=== PATIENT | female | born 2000 | race Two or more races ===

== ENCOUNTER 2024-01-06 12:09 | Inpatient (IN) | payer BC ==
[~2024-01-06] VITALS: Ht 157.5 cm; Wt 83.9 kg
[2024-01-06 12:05] VITALS: RESP 20
[2024-01-06] MEDS ORDERED: HALOPERIDOL LACTATE 5 MG/ML VIAL ONE (12:12)
[2024-01-06] MEDS ORDERED: DiphenhydrAMINE HCL 50 MG/ML VIAL ONE (12:12)
[2024-01-06] MEDS ORDERED: LORazepam 2 MG/ML VIAL ONE (12:12)
[2024-01-06] MEDS ORDERED: LAMO-24 PO (12:14)
[2024-01-06] MEDS ORDERED: RISP0.5T80 PO ×2 (12:14→13:31)
[2024-01-06] MEDS ORDERED: BUPR-344 PO (12:14)
[2024-01-06] MEDS: HALOPERIDOL LACTATE 5 MG/ML VIAL IM ONE (12:30)
[2024-01-06] MEDS: LORazepam 2 MG/ML VIAL IM ONE (12:30)
[2024-01-06] MEDS: DiphenhydrAMINE HCL 50 MG/ML VIAL IM ONE (12:30)
[2024-01-06] MEDS ORDERED: ACET600C5 PO (13:30)
[2024-01-06] MEDS ORDERED: CHOL200013 PO (13:30)
[2024-01-06] MEDS ORDERED: TRAZ-252 PO (13:30)
[2024-01-06] MEDS ORDERED: NALT50TA33 PO (13:30)
[2024-01-06] MEDS ORDERED: METF-1211 PO (13:32)
[2024-01-06] MEDS ORDERED: BUPR-225 PO (13:40)
[2024-01-06] MEDS ORDERED: PNEUMOCOCCAL VACCINE POLYVALENT 0.5 ML SYRINGE [PPSV23] IM. ONE (13:45)
[2024-01-06 17:38] VITALS: BP 116/74; PULSE 115; RESP 16; TEMP 98
[2024-01-06 18:41] LABS: GLUCOMETER DEV NAME(LOC) BV3S.; GLUCOSE,POINT OF CARE 63 MG/DL (70-110)
[2024-01-06 23:18] VITALS: BP 120/70; PULSE 98; RESP 18; TEMP 97.7
[2024-01-07 08:15] VITALS: BP 116/72; PULSE 78; RESP 16; TEMP 97.2; O2SAT 98
[2024-01-07] MEDS: CHOLECALCIFEROL (VIT D3) 1,000 UNITS [25 MCG] TABLET PO SCH (08:16)
[2024-01-07] MEDS: LORazepam 2 MG TABLET PO PRN (08:17)
[2024-01-07] MEDS: HALOPERIDOL 5 MG TABLET PO PRN (08:17)
[2024-01-07 08:29] LABS: BASOPHILS % (AUTO) 0.7 % (0.0-2.0); EOSINOPHILS % (AUTO) 2.6 % (1.0-6.0); HEMATOCRIT 42.1 % (36-46); HEMOGLOBIN 14.1 g/dL (12.0-16.0); LYMPHOCYTES # (AUTO) 4.1 K/uL (1.0-4.8); LYMPHOCYTES % (AUTO) 32.7 % (22.0-44.0); MEAN CORPUSCULAR HEMOGLOBIN 29.1 pg (26.0-34.0); MEAN CORPUSCULAR HGB CONC 33.4 G/dL (31.0-37.0); MEAN CORPUSCULAR VOLUME 87 fL (80-100); MONOCYTES % (AUTO) 7.8 % (2.0-9.0); NEUTROPHILS # (AUTO) 7.1 K/uL (1.8-7.7); NEUTROPHILS % (AUTO) 56.2 % (40.0-70.0); PLATELET COUNT (AUTO) 355 K/uL (150-450); RED BLOOD CELL COUNT(AUTO) 4.83 MIL/uL (4.00-5.20); RED CELL DISTRIBUTION WIDTH 14.5 % (11.5-14.5); WHITE BLOOD COUNT (AUTO) 12.7 K/uL (4.5-11.0)
[2024-01-07 08:52] LABS: ALANINE AMINOTRANSFERASE 25 U/L (12-78); ALBUMIN 3.6 g/dL (3.4-5.0); ALKALINE PHOSPHATASE 74 U/L (46-116); ANION GAP 11 mmol/L (8-16); ASPARTATE AMINOTRANSFERASE 16 U/L (15-37); BILIRUBIN,TOTAL 0.3 mg/dL (0.1-1.0); CALCIUM, TOTAL 9.3 mg/dL (8.8-10.5); CARBON DIOXIDE 27 mmol/L (22-29); CHLORIDE 106 mmol/L (98-107); CHOL/HDL RATIO 3.3 (3.9-5.7); CHOLESTEROL 131 mg/dL (131-200); CREATININE 0.59 mg/dL (0.60-1.30); FREE T4 (FREE THYROXINE) 1.28 ng/dL (0.76-1.46); GLOMERULAR FILTR. RATE CALC > 60 mL/min (>60); GLUCOSE,RANDOM 83 mg/dL (70-110); HDL CHOLESTEROL 40 mg/dL (40-60); LDL CHOL (CALC.) 76 mg/dL (0-130); POTASSIUM 3.4 mmol/L (3.5-5.1); SODIUM SERUM 144 mmol/L (136-145); THYROID STIMULATING HORMONE 0.94 uIU/mL (0.36-3.74); TOTAL PROTEIN, SERUM 8.1 g/dL (6.4-8.2); TRIGLYCERIDES 76 mg/dL (15-150); UREA NITROGEN, BLOOD 12 mg/dL (7-18)
[2024-01-07] MEDS: LamoTRIgine 100 MG TABLET PO SCH (13:11)
[2024-01-07] MEDS: RisperiDONE 0.5 MG TABLET PO SCH (13:11)
[2024-01-07] MEDS: NALTREXONE HCL 50 MG TABLET PO SCH (13:11)
[2024-01-07] MEDS: BuPROPion HCL 100 MG SR TABLET PO SCH (13:11)
[2024-01-07] MEDS: MetFORMIN HCL 500 MG TABLET PO SCH (17:00)
[2024-01-07 20:14] VITALS: BP 106/58; PULSE 104; RESP 18; TEMP 97.6; O2SAT 100
[2024-01-07] MEDS: TraZODone HCL 50 MG TABLET PO SCH (20:28)
[2024-01-08 08:18] VITALS: BP 112/69; PULSE 97; RESP 16; TEMP 98; O2SAT 98
[2024-01-08 08:46] LABS: BASOPHILS % (AUTO) 0.6 % (0.0-2.0); EOSINOPHILS % (AUTO) 2.9 % (1.0-6.0); HEMATOCRIT 39.5 % (36-46); HEMOGLOBIN 13.4 g/dL (12.0-16.0); LYMPHOCYTES % (AUTO) 34.3 % (22.0-44.0); MEAN CORPUSCULAR HEMOGLOBIN 29.7 pg (26.0-34.0); MEAN CORPUSCULAR VOLUME 88 fL (80-100); MONOCYTES # (AUTO) 0.5 K/uL (0.1-1.0); MONOCYTES % (AUTO) 5.5 % (2.0-9.0); NEUTROPHILS % (AUTO) 56.7 % (40.0-70.0); PLATELET COUNT (AUTO) 342 K/uL (150-450); RED BLOOD CELL COUNT(AUTO) 4.51 MIL/uL (4.00-5.20); RED CELL DISTRIBUTION WIDTH 14.5 % (11.5-14.5); WHITE BLOOD COUNT (AUTO) 8.8 K/uL (4.5-11.0)
[2024-01-08] MEDS: POTASSIUM CHLORIDE 20 MEQ ER TABLET PO ONE (09:16)
[2024-01-08 20:17] VITALS: BP 131/79; PULSE 100; RESP 16; TEMP 98.4; O2SAT 99
[2024-01-08] MEDS: ZOLPIDEM TARTRATE 10 MG TABLET PO PRN (21:10)
[2024-01-09 08:07] VITALS: BP 100/69; PULSE 79; RESP 16; TEMP 98; O2SAT 98
[2024-01-09 08:34] LABS: APPEARANCE,URINE TURBID (CLEAR); BILIRUBIN,URINE NEGATIVE (NEGATIVE); COLOR,URINE YELLOW (YELLOW); GLUCOSE, URINE (UA) NEGATIVE (NEGATIVE); KETONES,URINE NEGATIVE (NEGATIVE); LEUKOCYTE ESTERASE ,URINE TRACE (NEGATIVE); NITRATE,URINE NEGATIVE (NEGATIVE); OCCULT BLOOD,URINE SMALL (NEGATIVE); PROTEIN,URINE NEGATIVE (NEGATIVE); SPECIFIC GRAVITIY, URINE 1.026 (1.003-1.030); UROBILINOGEN,URINE <=1.0 mg/dL (<=1.0)
[2024-01-09 08:45] LABS: AMORPHOUS SEDIMENT,UR Moderate /LPF (None Seen); BACTERIA,URINE None Seen /HPF (None Seen); WBC,URINE 0-2 /HPF (0-5)
[2024-01-09 08:46] LABS: ALCOHOL, URINE DRUG SCREEN NEGATIVE (NEGATIVE); AMPHET/METH SCREEN,URINE NEGATIVE (NEGATIVE); BARBITURATE SCREEN, URINE NEGATIVE (NEGATIVE); BENZODIAZEPINES SCREEN,URINE NEGATIVE (NEGATIVE); CANNABINOID SCREEN,URINE NEGATIVE (NEGATIVE); COCAINE SCREEN,URINE NEGATIVE (NEGATIVE); METHADONE SCREEN, URINE NEGATIVE (NEGATIVE); OPIATE SCREEN,URINE NEGATIVE (NEGATIVE); PHENCYCLIDINE SCREEN,URINE NEGATIVE (NEGATIVE)
[2024-01-09 09:10] LABS: HCG,QUAL URINE NEGATIVE (NEGATIVE)
[2024-01-09 21:40] VITALS: BP 107/59; PULSE 100; RESP 20; TEMP 98.6; O2SAT 97
[2024-01-10 08:32] VITALS: BP 118/74; PULSE 74; RESP 16; TEMP 98; O2SAT 97
[2024-01-10] MEDS ORDERED: HydrOXYzine PAMOATE 25 MG CAPSULE PO PRN (11:15)
[2024-01-10 20:21] VITALS: BP 114/71; PULSE 101; RESP 16; TEMP 97.7; O2SAT 98
[2024-01-10 20:25] VITALS: BP 107/68; PULSE 106; RESP 18; TEMP 98.1; O2SAT 98
[2024-01-10 22:30] LABS: GLUCOMETER DEV NAME(LOC) POC.BV; POC SARS-COV2 AG, FIA NEGATIVE (NEGATIVE)
[2024-01-11 02:35] VITALS: BP 126/87; PULSE 86; RESP 18; TEMP 97.5; O2SAT 96
[2024-01-11] MEDS ORDERED: ALBUTEROL SULFATE HFA 90 MCG/PUFF 8 GM INHALER IH PRN (06:15)
[2024-01-11] MEDS ORDERED: DOCUSATE SODIUM 100 MG CAPSULE PO PRN (06:15)
[2024-01-11] MEDS ORDERED: CloNIDine HCL 0.1 MG TABLET PO PRN (06:15)
[2024-01-11] MEDS ORDERED: ACETAMINOPHEN 325 MG TABLET PO PRN (06:15)
[2024-01-11] MEDS ORDERED: LOPERAMIDE HCL 2 MG CAPSULE PO PRN (06:15)
[2024-01-11] MEDS ORDERED: IBUPROFEN 400 MG TABLET PO PRN (06:15)
[2024-01-11] MEDS ORDERED: ONDANSETRON HCL 4 MG TABLET PO PRN (06:15)
[2024-01-11] MEDS ORDERED: MAGNESIUM HYDROXIDE SUSPENSION 30 ML UDCUP PO PRN (06:15)
[2024-01-11] MEDS ORDERED: MAG HYDROX/ALUMINUM HYD/SIMETH ES 30 ML SUSPENSION UDCUP PO PRN (06:15)
[2024-01-11] MEDS ORDERED: PETROLATUM,WHITE 28 GM JELLY TP PRN (06:15)
[2024-01-11] MEDS ORDERED: NICOTINE 14 MG/24 HOUR PATCH TD PRN (06:15)
[2024-01-11] MEDS ORDERED: GuaiFENesin/D-METHORPHAN [SUGAR-FREE] 200-20MG/10 ML SYRUP UDCUP PO PRN (06:15)
[2024-01-11 07:20] LABS: GLUCOMETER DEV NAME(LOC) 3E.I 2; GLUCOSE,POINT OF CARE 106 MG/DL (70-110)
[2024-01-11 10:21] VITALS: BP 127/78; PULSE 86; RESP 18; TEMP 97.5; O2SAT 98
[2024-01-11 17:11] LABS: GLUCOMETER DEV NAME(LOC) 3E.I 2; GLUCOSE,POINT OF CARE 90 MG/DL (70-110)
[2024-01-11 21:14] VITALS: BP 123/74; PULSE 78; RESP 18; TEMP 97.6; O2SAT 95
[2024-01-11 21:34] VITALS: PULSE 92; RESP 20; O2SAT 98
[2024-01-12 07:06] LABS: GLUCOMETER DEV NAME(LOC) 3E.I 2; GLUCOSE,POINT OF CARE 90 MG/DL (70-110)
[2024-01-12 10:46] VITALS: BP 113/73; PULSE 67; RESP 18; TEMP 97.4; O2SAT 98
[2024-01-12 17:56] LABS: GLUCOMETER DEV NAME(LOC) 3E.I 2; GLUCOSE,POINT OF CARE 124 MG/DL (70-110)
[2024-01-12] MEDS: RisperiDONE 2 MG TABLET PO SCH (21:02)
[2024-01-12 22:30] VITALS: PULSE 90; RESP 20; O2SAT 98
[2024-01-12 22:31] VITALS: BP 117/67; PULSE 82; RESP 18; TEMP 98.2; O2SAT 95
[2024-01-13 01:30] VITALS: PULSE 92; RESP 20; O2SAT 98
[2024-01-13 06:36] LABS: GLUCOMETER DEV NAME(LOC) 3E.I 2; GLUCOSE,POINT OF CARE 93 MG/DL (70-110)
[2024-01-13 09:04] VITALS: BP 111/76; PULSE 73; RESP 18; TEMP 97.7; O2SAT 98
[2024-01-13] MEDS: BuPROPion HCL XL 150 MG ER TABLET PO SCH (09:20)
[2024-01-13 17:20] LABS: GLUCOMETER DEV NAME(LOC) 3E.I 2; GLUCOSE,POINT OF CARE 77 MG/DL (70-110)
[2024-01-13 20:38] VITALS: BP 124/83; PULSE 86; RESP 18; TEMP 97.6; O2SAT 97
[2024-01-14 05:35] LABS: GLUCOMETER DEV NAME(LOC) 3E.I 2; GLUCOSE,POINT OF CARE 83 MG/DL (70-110)
[2024-01-14 10:12] VITALS: BP 104/66; PULSE 79; RESP 16; TEMP 98.2; O2SAT 97
[2024-01-14 16:30] LABS: GLUCOMETER DEV NAME(LOC) 3E.I 2; GLUCOSE,POINT OF CARE 95 MG/DL (70-110)
[2024-01-14 20:37] VITALS: BP 124/71; PULSE 86; RESP 18; TEMP 97.9
[2024-01-15 05:35] LABS: GLUCOMETER DEV NAME(LOC) 3E.I 2; GLUCOSE,POINT OF CARE 78 MG/DL (70-110)
[2024-01-15 12:04] VITALS: BP 119/79; PULSE 95; RESP 18; TEMP 97.9; O2SAT 99
[2024-01-15 17:00] LABS: GLUCOMETER DEV NAME(LOC) 3EX.2; GLUCOSE,POINT OF CARE 82 MG/DL (70-110)
[2024-01-15 20:22] VITALS: BP 122/73; PULSE 89; RESP 18; TEMP 97.5
[2024-01-16 05:46] LABS: GLUCOMETER DEV NAME(LOC) 3E.I 2; GLUCOSE,POINT OF CARE 72 MG/DL (70-110)
[2024-01-16 08:23] VITALS: BP 130/90; PULSE 86; RESP 18; TEMP 98; O2SAT 98
[2024-01-16 17:36] LABS: GLUCOMETER DEV NAME(LOC) 3E.I 2; GLUCOSE,POINT OF CARE 73 MG/DL (70-110)
[2024-01-16 21:32] VITALS: BP 136/81; PULSE 102; RESP 18; TEMP 97.1; O2SAT 97
[2024-01-17 05:56] LABS: GLUCOMETER DEV NAME(LOC) 3E.I 2; GLUCOSE,POINT OF CARE 82 MG/DL (70-110)
[2024-01-17 09:07] VITALS: BP 125/89; PULSE 99; RESP 18; TEMP 97; O2SAT 100
[2024-01-17] MEDS ORDERED: BUPR-50 PO (10:20)
[2024-01-17] MEDS ORDERED: RISP-32 PO (10:24)
== END 2024-01-17 14:10 | disposition home or self-care (01) | DRG 885 ==
LOC: B3A 12:09 → 3EI 01-11 02:10
PROVIDERS: ADMIT Psychiatry & Neurology Psychiatry; ATTEND Psychiatry & Neurology Psychiatry
PROC: GZHZZZZ Group Psychotherapy (ICD-10-PCS; principal; 2024-01-07)
PROC: 5A09357 Assistance with Respiratory Ventilation, Less than 24 Consecutive Hours, Continuous Positive Airway Pressure (ICD-10-PCS; 2024-01-11)
PROC: 5A09357 Assistance with Respiratory Ventilation, Less than 24 Consecutive Hours, Continuous Positive Airway Pressure (ICD-10-PCS; 2024-01-11)
DX: F20.0 Paranoid schizophrenia (principal); R45.851 Suicidal ideations; E11.9 Type 2 diabetes mellitus without complications; E87.6 Hypokalemia; Z20.822 Contact with and (suspected) exposure to COVID-19; D72.829 Elevated white blood cell count, unspecified; F32.A Depression, unspecified
CPT/HCPCS: 80053; 80061; 80307; 81001; 82962; 83036; 84132; 84439; 84443; 84703; 85025; 86592; 87081; 90732; 94660; J1200; J1630; J2060